=== PATIENT | female | born 1990 ===

== ENCOUNTER 2017-05-13 20:20 | Emergency (ER) | payer MEDICARE, OTHER ==
[2017-05-13 20:25] VITALS: BMI 36.2
[2017-05-13 20:26] VITALS: BP 124/81; RESP 20; TEMP 98; O2SAT 100
[2017-05-13 20:29] VITALS: PULSE 100
--- NOTE | 2017-05-13 20:43 | ED PDOC ---
Arrival/HPI - General Chief Complaint: Cough, Cold, Congestion Time Seen by Provider: 05/13/17 20:30 Historian: Patient - History of Present Illness Narrative History of Present Illness (Text): 05/13/17 20:40 Pt. to ED no significant PMHX with c/o nasal congestion,earache,sinus discomfort past week.No fever or chills. Past Medical History - Provider Review Nursing Documentation Reviewed: Yes - Travel History Have you recently traveled outside [place] w/in the past 3 mons?: No - Tetanus Immunization Tetanus Immunization: Unknown - Past Medical History Past Medical History: No Previous - Cardiac Hx Cardiac Disorders: No - Pulmonary Hx Respiratory Disorders: No - Neurological Hx Neurological Disorder: No - HEENT Hx HEENT Disorder: No - Renal Hx Renal Disorder: No - Endocrine/Metabolic Hx Endocrine Disorders: No - Hematological/Oncological Hx Blood Disorders: No - Integumentary Hx Dermatological Disorder: No - Musculoskeletal/Rheumatological Hx Musculoskeletal Disorders: No - Gastrointestinal Hx Gastrointestinal Disorders: No - Genitourinary/Gynecological Hx Genitourinary Disorders: No - Psychiatric Hx Depression: No Hx Emotional Abuse: No Hx Physical Abuse: No Hx Substance Use: No - Past Surgical History Past Surgical History: No Previous - Anesthesia Hx Anesthesia: No - Suicidal Assessment Feels Threatened In Home Enviroment: No Family/Social History - Physician Review Nursing Documentation Reviewed: Yes Family/Social History: No Known Family HX Smoking Status: Former Smoker Hx Alcohol Use: Yes Hx Substance Use: No Hx Substance Use Treatment: No Allergies/Home Meds Allergies/Adverse Reactions: Allergies No Known Allergies Allergy (Verified 05/13/17 20:25) Review of Systems - Review of Systems Constitutional: Normal Eyes: Normal ENT: Sinus Congestion Respiratory: Normal Cardiovascular: Normal Gastrointestinal: Normal Genitourinary Female: Normal Musculoskeletal: Normal Skin: Normal Neurological: Normal Endocrine: Normal Hemo/Lymphatic: Normal Psychiatric: Normal Physical Exam Vital Signs Temp Pulse Resp BP Pulse Ox 05/13/17 20:26 98.0 F 100 H 20 124/81 100 Temperature: Afebrile Blood Pressure: Normal Pulse: Regular Respiratory Rate: Normal Appearance: Positive for: Well-Appearing, Non-Toxic, Comfortable Pain Distress: None Mental Status: Positive for: Alert and Oriented X 3 - Systems Exam Head: Present: Atraumatic, Normocephalic, Other (frontal sinus congestion) Pupils: Present: PERRL Extroacular Muscles: Present: EOMI Conjunctiva: Present: Normal Ears: Present: Other (left TM erythematous) Mouth: Present: Moist Mucous Membranes Pharnyx: Present: Normal Nose (Internal): Present: Rhinorrhea, Other (congestion) Neck: Present: Normal Range of Motion Respiratory/Chest: Present: Clear to Auscultation, Good Air Exchange. No: Respiratory Distress, Accessory Muscle Use Cardiovascular: Present: Regular Rate and Rhythm, Normal S1, S2. No: Murmurs Upper Extremity: Present: Normal Inspection. No: Cyanosis, Edema Lower Extremity: Present: Normal Inspection. No: Edema Neurological: Present: GCS=15, CN II-XII Intact, Speech Normal, Motor Func Grossly Intact, Normal Sensory Function Skin: Present: Warm, Dry, Normal Color. No: Rashes Psychiatric: Present: Alert, Oriented x 3, Normal Insight, Normal Concentration Disposition/Present on Arrival - Present on Arrival Any Indicators Present on Arrival: No History of DVT/PE: No History of Uncontrolled Diabetes: No Urinary Catheter: No History of Decub. Ulcer: No History Surgical Site Infection Following: None - Disposition Have Diagnosis and Disposition been Completed?: Yes Diagnosis: Otitis media, Sinusitis Disposition: HOME/ ROUTINE Disposition Time: 20:45 Patient Plan: Discharge Condition: GOOD Discharge Instructions (ExitCare): Ear Infections (Otitis Media) (DC), Sinusitis, Adult (DC) Additional Instructions: Take meds as prescribed/follow up with your doctor as needed Prescriptions: Fexofenadine/Pseudoephedrine [Elizabet-D 12 Hour Tablet] 1 each PO BID PRN #24 tab.er.12h PRN Reason: Nasal Congestion Amoxicillin/Clavulanate [Augmentin 875 MG-125 MG] 1 tab PO BID #20 tab Forms: [employer] ([place]), WORK NOTE
== END 2017-05-13 20:54 | disposition home or self-care (01) ==
LOC: ED 20:20
DX: H66.90 Otitis media, unspecified, unspecified ear (principal); J32.9 Chronic sinusitis, unspecified; Z87.891 Personal history of nicotine dependence

== ENCOUNTER 2017-05-28 21:27 | Emergency (ER) | payer MEDICARE, OTHER ==
[2017-05-28 21:28] VITALS: BMI 36.2
[2017-05-28 21:55] VITALS: RESP 18; TEMP 97.8
--- NOTE | 2017-05-28 22:42 | ED PDOC ---
Arrival/HPI <Srini Miranda - Last Filed: 05/29/17 02:12> - General Historian: Patient <Galen Monson A - Last Filed: 05/29/17 23:37> - General Chief Complaint: Abdominal Pain Time Seen by Provider: 05/28/17 21:56 - History of Present Illness Narrative History of Present Illness (Text): 05/28/17 22:38 26yo female with no Past medical history who present with complaint of supra pubic abdominal pain for 3days. +Urinary frequency. She did not take any medication. Denies nausea, vomiting, diarrhea, constipation, fever, dysuria, hematuria, vaginal discharge, back pain, any other complaint. (Galen Monson A) Past Medical History - Provider Review Nursing Documentation Reviewed: Yes - Infectious Disease Hx of Infectious Diseases: None - Tetanus Immunization Tetanus Immunization: Unknown - Past Medical History Past Medical History: No Previous - Cardiac Hx Cardiac Disorders: No - Pulmonary Hx Respiratory Disorders: No - Neurological Hx Neurological Disorder: No - HEENT Hx HEENT Disorder: No - Renal Hx Renal Disorder: No - Endocrine/Metabolic Hx Endocrine Disorders: No - Hematological/Oncological Hx Blood Disorders: No - Integumentary Hx Dermatological Disorder: No - Musculoskeletal/Rheumatological Hx Musculoskeletal Disorders: No - Gastrointestinal Hx Gastrointestinal Disorders: No - Genitourinary/Gynecological Hx Genitourinary Disorders: No - Psychiatric Hx Depression: No Hx Emotional Abuse: No Hx Physical Abuse: No Hx Substance Use: No - Past Surgical History Past Surgical History: No Previous - Anesthesia Hx Anesthesia: No - Suicidal Assessment Feels Threatened In Home Enviroment: No <Galen Monson A - Last Filed: 05/29/17 23:37> Family/Social History - Physician Review Nursing Documentation Reviewed: Yes Family/Social History: Unknown Family HX Smoking Status: Light Smoker < 10 Cigarettes Daily Hx Alcohol Use: Yes Frequency of alcohol use: Socially Hx Substance Use: No Hx Substance Use Treatment: No <Galen Monson A - Last Filed: 05/29/17 23:37> Allergies/Home Meds <Srini Miranda - Last Filed: 05/29/17 02:12> <Galen Monson A - Last Filed: 05/29/17 23:37> Allergies/Adverse Reactions: Allergies No Known Allergies Allergy (Verified 05/13/17 20:25) Review of Systems - Physician Review All systems were reviewed & negative as marked: Yes - Review of Systems Constitutional: Normal Eyes: Normal ENT: Normal Respiratory: Normal Cardiovascular: Normal Gastrointestinal: Abdominal Pain. absent: Constipation, Diarrhea, Nausea, Vomiting, Appetite Changes, Hematochezia, Hematemesis Genitourinary Female: Frequency. absent: Dysuria, Hematuria, Urine Output Changes, Vaginal Bleeding Musculoskeletal: Normal Skin: Normal Neurological: Normal Endocrine: Normal Hemo/Lymphatic: Normal Psychiatric: Normal <Diru,Happiness A - Last Filed: 05/29/17 23:37> Physical Exam Vital Signs Reviewed: Yes Temperature: Afebrile Blood Pressure: Normal Pulse: Regular Respiratory Rate: Normal Appearance: Positive for: Well-Appearing, Non-Toxic, Comfortable Pain Distress: None Mental Status: Positive for: Alert and Oriented X 3 - Systems Exam Head: Present: Atraumatic, Normocephalic Pupils: Present: PERRL Extroacular Muscles: Present: EOMI Conjunctiva: Present: Normal Mouth: Present: Moist Mucous Membranes Neck: Present: Normal Range of Motion Respiratory/Chest: Present: Clear to Auscultation, Good Air Exchange. No: Respiratory Distress, Accessory Muscle Use Cardiovascular: Present: Regular Rate and Rhythm, Normal S1, S2. No: Murmurs Abdomen: Present: Tenderness (Suprapubic tenderness), Other (soft). No: Distention, Peritoneal Signs, Rebound, Guarding, McBurney's Point Tender, Rovsing's Sign Present Back: Present: Normal Inspection Upper Extremity: Present: Normal Inspection. No: Cyanosis, Edema Lower Extremity: Present: Normal Inspection. No: Edema Neurological: Present: GCS=15, CN II-XII Intact, Speech Normal Skin: Present: Warm, Dry, Normal Color. No: Rashes Psychiatric: Present: Alert, Oriented x 3, Normal Insight, Normal Concentration <Diru,Happiness A - Last Filed: 05/29/17 23:37> Vital Signs Temp Pulse Resp BP Pulse Ox 05/29/17 02:30 74 18 110/72 100 05/28/17 21:50 97.8 F 75 18 101/69 97 Medical Decision Making - RAD Interpretation Esthetician: Radiologist <Srini Miranda - Last Filed: 05/29/17 02:12> <Diru,Happiness A - Last Filed: 05/29/17 23:37> ED Course and Treatment: 05/29/17 02:12 CT Abdomen and Pelvis shows: Lung bases: No visualized consolidation. ABDOMEN: Liver: Unremarkable. No mass. Gallbladder and bile ducts: No calcified stones. Pancreas: Normal contour. No ductal dilation. Spleen: The spleen measures 12.97 m in length, borderline for splenomegaly. Adrenals: No mass. Kidneys and ureters: No obstructing stones. No hydronephrosis. Stomach and bowel: No obstruction. No mucosal thickening. Appendix: No acute inflammatory changes are identified involving the appendix. PELVIS: Bladder: No stones. Reproductive: Unremarkable as visualized. ABDOMEN and PELVIS: Intraperitoneal space: No free air. Trace free fluid is seen within the cul-de- sac. Bones/joints: No acute fracture. Soft tissues: There is minimal herniation of fat within the umbilicus. There is diastases of the rectus abdominis musculature. Vasculature: No abdominal aortic aneurysm. Lymph nodes: Small retroperitoneal and intrapelvic lymph nodes are identified, without significant lymphadenopathy. Nonspecific small inguinal lymph nodes are visualized. Small mesenteric lymph nodes are visualized, no significant lymphadenopathy. IMPRESSION: 1. No acute inflammatory changes are identified involving the appendix. 2. Borderline splenomegaly. 3. Trace free fluid is seen within the cul-de-sac. This can be further evaluated with ultrasound. 4. Incidental/non-acute findings are described above. (Srini Miranda) 05/29/17 01:52 PT in Emergency department for abdominal pain with urinary frequency. She have no UTI. she was comfortable in Emergency department. Abdominal/Pelvic CT is pending. case endorsed to Dr. Miranda to f/u CT and dispo accordingly. (Galen Monson) - Lab Interpretations Lab Results: Lab Results 05/28/17 22:51: Urine Color Yellow, Urine Appearance Clear, Urine pH 7.0, Ur Specific Butler 1.020, Urine Protein Negative, Urine Glucose (UA) Negative, Urine Ketones Negative, Urine Blood Negative, Urine Nitrate Negative, Urine Bilirubin Negative, Urine Urobilinogen 1.0 H, Ur Leukocyte Esterase Negative - RAD Interpretation Radiology Orders: 05/28/17 23:06 ABD & PELVIS W/O PO OR IV CONT [CT] Stat - Medication Orders Current Medication Orders: Discontinued Medications Ketorolac Tromethamine (Toradol) 60 mg IM STAT STA Stop: 05/29/17 01:53 Last Admin: 05/29/17 02:19 Dose: 60 mg MAR Pain Assessment Document 05/29/17 02:19 AD (Rec: 05/29/17 02:19 AD [id number]) Pain Reassessment Is this a pain reassessment? No Pain Scale Used Pain Scale Used Numeric Description Intensity of Pain at present 7 IM Administration Charges Document 05/29/17 02:19 AD (Rec: 05/29/17 02:19 AD [id number]) Injection Site MAR Injection Site Right Gluteus Patrick Charges for Administration # of IM Administrations 1 Disposition/Present on Arrival <Srini Miranda - Last Filed: 05/29/17 02:12> - Present on Arrival Any Indicators Present on Arrival: No History of DVT/PE: No History of Uncontrolled Diabetes: No Urinary Catheter: No History of Decub. Ulcer: No History Surgical Site Infection Following: None - Disposition Have Diagnosis and Disposition been Completed?: Yes Disposition Time: 02:55 Patient Plan: Discharge <Galen Monson - Last Filed: 05/29/17 23:37> - Disposition Diagnosis: Abdominal pain Disposition: HOME/ ROUTINE Condition: STABLE Discharge Instructions (ExitCare): Acute Abdomen (Belly Pain) Referrals: Attila Breen [Primary Care Provider] - Follow up with primary Justyna Hernandez MD [Staff Provider] - Follow up with primary Julio Cesar Garcia MD [Staff Provider] - Follow up with primary Forms: [employer] (French), WORK NOTE
[2017-05-28 22:57] LABS: URINE BILIRUBIN NEGATIVE (NEGATIVE); URINE BLOOD NEGATIVE (NEGATIVE); URINE GLUCOSE (UA) NEGATIVE (NEGATIVE); URINE LEUKOCYTE ESTERASE NEGATIVE Leu/uL (NEGATIVE); URINE PROTEIN NEGATIVE mg/dL (<30 mg/dL)
[2017-05-28 23:01] LABS: URINE APPEARANCE CLEAR (CLEAR); URINE COLOR YELLOW (YELLOW)
--- NOTE | 2017-05-29 02:12 | CT ---
EXAM: CT Abdomen and Pelvis Without Intravenous Contrast EXAM DATE/TIME: 05/28/2017 11:06 PM CLINICAL HISTORY: The patient age is 26 years old and is female; Pain; Abdominal pain; Localized; Lower Facility exam id and description: Ct abdpelscon abd pelvis w/o po or iv cont TECHNIQUE: Axial computed tomography images of the abdomen and pelvis without intravenous contrast. All CT scans at this facility use one or more dose reduction techniques, viz.: automated exposure control; ma/kV adjustment per patient size (including targeted exams where dose is matched to indication; i.e. head); or iterative reconstruction technique. Coronal and sagittal reformatted images were created and reviewed. COMPARISON: No relevant prior studies available. FINDINGS: Lung bases: No visualized consolidation. ABDOMEN: Liver: Unremarkable. No mass. Gallbladder and bile ducts: No calcified stones. Pancreas: Normal contour. No ductal dilation. Spleen: The spleen measures 12.97 m in length, borderline for splenomegaly. Adrenals: No mass. Kidneys and ureters: No obstructing stones. No hydronephrosis. Stomach and bowel: No obstruction. No mucosal thickening. Appendix: No acute inflammatory changes are identified involving the appendix. PELVIS: Bladder: No stones. Reproductive: Unremarkable as visualized. ABDOMEN and PELVIS: Intraperitoneal space: No free air. Trace free fluid is seen within the cul-de-sac. Bones/joints: No acute fracture. Soft tissues: There is minimal herniation of fat within the umbilicus. There is diastases of the rectus abdominis musculature. Vasculature: No abdominal aortic aneurysm. Lymph nodes: Small retroperitoneal and intrapelvic lymph nodes are identified, without significant lymphadenopathy. Nonspecific small inguinal lymph nodes are visualized. Small mesenteric lymph nodes are visualized, no significant lymphadenopathy. IMPRESSION: 1. No acute inflammatory changes are identified involving the appendix. 2. Borderline splenomegaly. 3. Trace free fluid is seen within the cul-de-sac. This can be further evaluated with ultrasound. 4. Incidental/non-acute findings are described above.
[2017-05-29 02:43] VITALS: BP 110/72; PULSE 74; O2SAT 100
== END 2017-05-29 02:41 | disposition home or self-care (01) ==
LOC: ED 21:27
DX: R10.9 Unspecified abdominal pain (principal)
CPT/HCPCS: 74176; 81003; 96372; 99283; J1885

== ENCOUNTER 2017-07-19 10:04 | Emergency (ER) | payer MEDICARE, OTHER ==
[2017-07-19 10:06] VITALS: BMI 36.2
[2017-07-19 10:12] VITALS: O2SAT 98
--- NOTE | 2017-07-19 10:56 | ED PDOC ---
Arrival/HPI - General Chief Complaint: Abnormal Skin Integrity Time Seen by Provider: 07/19/17 10:11 Historian: Patient - History of Present Illness Narrative History of Present Illness (Text): 07/19/17 10:52 This 27 yo female presents to this ED c/o upper lips are swollen since she woke up this morning. Patient also noted left face feels swollen. While in this ED triage, patient felt itching b/l shoulders, then tingling left hand. Patient denies trauma, diplopia, dysarthria, dizziness, SOB, CP, other somatic complains. Time/Duration: Other (see hpi) Context: Home Past Medical History - Provider Review Nursing Documentation Reviewed: Yes - Infectious Disease Hx of Infectious Diseases: None - Tetanus Immunization Tetanus Immunization: Unknown - Past Medical History Past Medical History: No Previous - Cardiac Hx Cardiac Disorders: No - Pulmonary Hx Respiratory Disorders: No - Neurological Hx Neurological Disorder: No - HEENT Hx HEENT Disorder: No - Renal Hx Renal Disorder: No - Endocrine/Metabolic Hx Endocrine Disorders: No - Hematological/Oncological Hx Blood Disorders: No - Integumentary Hx Dermatological Disorder: No - Musculoskeletal/Rheumatological Hx Musculoskeletal Disorders: No - Gastrointestinal Hx Gastrointestinal Disorders: No - Genitourinary/Gynecological Hx Genitourinary Disorders: No - Psychiatric Hx Depression: No Hx Emotional Abuse: No Hx Physical Abuse: No Hx Substance Use: No - Past Surgical History Past Surgical History: No Previous - Anesthesia Hx Anesthesia: No - Suicidal Assessment Feels Threatened In Home Enviroment: No Family/Social History - Physician Review Nursing Documentation Reviewed: Yes Family/Social History: Other (noncontributory) Smoking Status: Current Some Days Smoker Hx Alcohol Use: Yes Frequency of alcohol use: Socially Hx Substance Use: No Hx Substance Use Treatment: No Allergies/Home Meds Allergies/Adverse Reactions: Allergies No Known Allergies Allergy (Verified 05/13/17 20:25) Review of Systems - Review of Systems Constitutional: Normal. absent: Fatigue, Weight Change, Fevers Eyes: Normal ENT: Other (swollen lips) Respiratory: Normal Cardiovascular: Normal Gastrointestinal: Normal Genitourinary Female: Normal. absent: Dysuria, Frequency, Hematuria Musculoskeletal: Normal Skin: Normal Neurological: Normal Endocrine: Normal Hemo/Lymphatic: Normal Psychiatric: Normal Physical Exam Vital Signs Temp Pulse Resp BP Pulse Ox 07/19/17 12:11 75 18 118/68 98 07/19/17 11:09 79 18 115/71 98 07/19/17 10:06 98.7 F 80 16 117/76 98 Temperature: Afebrile Blood Pressure: Normal Pulse: Regular Respiratory Rate: Normal Appearance: Positive for: Well-Appearing, Non-Toxic, Comfortable Pain Distress: None Mental Status: Positive for: Alert and Oriented X 3 - Systems Exam Head: Present: Atraumatic, Normocephalic Pupils: Present: PERRL Extroacular Muscles: Present: EOMI Conjunctiva: Present: Normal Mouth: Present: Moist Mucous Membranes, Normal Tounge. No: Drooling, Trismus, Normal Lips ((+) mild upper lip swelling. No erythema. No skin rash.) Pharnyx: Present: Normal. No: ERYTHEMA, EXUDATE, TONSILS ENLARGED Nose (External): Present: Atraumatic Nose (Internal): Present: Normal Inspection Neck: Present: Normal Range of Motion, Trachea Midline. No: Meningeal Signs, MIDLINE TENDERNESS, Paraspinal Tenderness, Lymphadenopathy Respiratory/Chest: Present: Clear to Auscultation, Good Air Exchange. No: Respiratory Distress, Accessory Muscle Use, Wheezes, Retracting, Rhonchi Cardiovascular: Present: Regular Rate and Rhythm, Normal S1, S2. No: Murmurs Abdomen: No: Tenderness, Distention, Peritoneal Signs, Rebound, Guarding Back: Present: Normal Inspection. No: CVA Tenderness Upper Extremity: Present: Normal Inspection, Normal ROM. No: Cyanosis, Edema Lower Extremity: Present: Normal Inspection, Normal ROM. No: Edema Neurological: Present: GCS=15, CN II-XII Intact, Speech Normal, Motor Func Grossly Intact, Normal Sensory Function, Normal Cerebellar Funct, Gait Normal Skin: Present: Warm, Dry, Normal Color. No: Rashes Psychiatric: Present: Alert, Oriented x 3, Normal Insight, Normal Concentration Medical Decision Making ED Course and Treatment: 07/19/17 11:14 I reviewed with patient the risk of using Prednisone for allergies. I told patient the risk are not only but including AVN, DM, glaucoma, osteoporosis, osteopenia. Patient understood risk, and agreed to take Prednisone. 07/19/17 14:30 On revaluation, patient feels better. Patient swelling lips have improved. Patient denies wheezing, dysphagia, strider. Patient has a normal speech. Lungs CTA b/l, no wheezing. Patient tolerates PO fluids, and food. Patient wishes to be discharge home. Patient was recommended to stop eating [place] food, and to have an allergy test. To use Epi Pen for anaphylactic show allergy. Re-evaluation Time: 14:18 Reassessment Condition: Re-examined, Improved - Medication Orders Current Medication Orders: Discontinued Medications Diphenhydramine HCl (Benadryl) 50 mg PO STAT STA Stop: 07/19/17 10:53 Last Admin: 07/19/17 11:13 Dose: 50 mg Famotidine (Pepcid) 40 mg PO STAT STA Stop: 07/19/17 10:57 Last Admin: 07/19/17 11:14 Dose: 40 mg Prednisone (Prednisone Tab) 60 mg PO STAT ONE Stop: 07/19/17 10:53 Last Admin: 07/19/17 11:13 Dose: 60 mg Disposition/Present on Arrival - Present on Arrival Any Indicators Present on Arrival: No History of DVT/PE: No History of Uncontrolled Diabetes: No Urinary Catheter: No History of Decub. Ulcer: No History Surgical Site Infection Following: None - Disposition Have Diagnosis and Disposition been Completed?: Yes Diagnosis: Allergic reaction Disposition: HOME/ ROUTINE Disposition Time: 14:20 Patient Plan: Discharge Condition: GOOD Discharge Instructions (ExitCare): Allergy Skin Testing Additional Instructions: Call private doctor for follow up visit in 1-2 days. Take medication as instructed. Return to emergency if symptoms worsen. Do not eat [place] food till you get an allergy test. Do not drive or operate machinery if you take Vistaril for at least 12 hours. Prescriptions: Epinephrine [Epipen] 0.3 mg IJ DAILY PRN #1 auto.injct PRN Reason: Anaphylaxis Famotidine [Pepcid] 40 mg PO DAILY #10 tablet Hydroxyzine Pamoate [Vistaril] 25 mg PO Q8H PRN #20 capsule PRN Reason: Itching / Pruritus predniSONE [predniSONE Tab] 40 mg PO DAILY #6 tab Referrals: Yin Rea MD [Staff Provider] - Follow up with primary Forms: [employer] (Georgian)
[2017-07-19 11:09] VITALS: RESP 18
[2017-07-19 14:11] VITALS: BP 121/69; PULSE 69
[2017-07-19 14:24] VITALS: TEMP 98.2
== END 2017-07-19 14:54 | disposition home or self-care (01) ==
LOC: ED 10:04
DX: T78.40XA Allergy, unspecified, initial encounter (principal); X58.XXXA Exposure to other specified factors, initial encounter; F17.200 Nicotine dependence, unspecified, uncomplicated

== ENCOUNTER 2017-10-26 10:17 | Emergency (ER) | payer MEDICARE, OTHER ==
[2017-10-26 10:17] VITALS: BMI 36.2
--- NOTE | 2017-10-26 10:46 | ED PDOC ---
Arrival/HPI - General Chief Complaint: Dental Pain Time Seen by Provider: 10/26/17 10:32 Historian: Patient - History of Present Illness Narrative History of Present Illness (Text): 10/26/17 10:43 27yo female with no pmhx who present with complaint of left sided toothache . Notes that pain started intermittently 2weeks ago and became worse the past 2days. States she took Motrin earlier this morning without relieve. Denies fever , chills, any other complaint. Past Medical History - Provider Review Nursing Documentation Reviewed: Yes - Infectious Disease Hx of Infectious Diseases: None - Tetanus Immunization Tetanus Immunization: Unknown - Past Medical History Past Medical History: No Previous - Cardiac Hx Cardiac Disorders: No - Pulmonary Hx Respiratory Disorders: No - Neurological Hx Neurological Disorder: No - HEENT Hx HEENT Disorder: No - Renal Hx Renal Disorder: No - Endocrine/Metabolic Hx Endocrine Disorders: No - Hematological/Oncological Hx Blood Disorders: No - Integumentary Hx Dermatological Disorder: No - Musculoskeletal/Rheumatological Hx Musculoskeletal Disorders: No - Gastrointestinal Hx Gastrointestinal Disorders: No - Genitourinary/Gynecological Hx Genitourinary Disorders: No - Psychiatric Hx Depression: No Hx Emotional Abuse: No Hx Physical Abuse: No Hx Substance Use: No - Past Surgical History Past Surgical History: No Previous - Anesthesia Hx Anesthesia: No - Suicidal Assessment Feels Threatened In Home Enviroment: No Family/Social History - Physician Review Nursing Documentation Reviewed: Yes Family/Social History: Unknown Family HX Smoking Status: Light Smoker < 10 Cigarettes Daily Hx Alcohol Use: Yes Frequency of alcohol use: Socially Hx Substance Use: No Hx Substance Use Treatment: No Allergies/Home Meds Allergies/Adverse Reactions: Allergies No Known Allergies Allergy (Verified 10/26/17 10:29) Review of Systems - Physician Review All systems were reviewed & negative as marked: Yes - Review of Systems Constitutional: Normal Eyes: Normal ENT: Other (Toothache) Respiratory: Normal Cardiovascular: Normal Gastrointestinal: Normal Genitourinary Female: Normal Musculoskeletal: Normal Skin: Normal Neurological: Normal Endocrine: Normal Hemo/Lymphatic: Normal Psychiatric: Normal Physical Exam Vital Signs Reviewed: Yes Vital Signs Temp Pulse Resp BP Pulse Ox 10/26/17 10:26 98.1 F 76 18 114/78 99 Temperature: Afebrile Blood Pressure: Normal Pulse: Regular Respiratory Rate: Normal Appearance: Positive for: Well-Appearing, Non-Toxic, Comfortable Pain Distress: None Mental Status: Positive for: Alert and Oriented X 3 - Systems Exam Head: Present: Atraumatic, Normocephalic Pupils: Present: PERRL Extroacular Muscles: Present: EOMI Conjunctiva: Present: Normal Mouth: Present: Moist Mucous Membranes. No: Normal Teeth (Very mild swelling of the gingiva surrounding the left lower premolar and molar. No overlaying jaw/ chin swelling. No erythema.) Neck: Present: Normal Range of Motion Respiratory/Chest: Present: Clear to Auscultation, Good Air Exchange. No: Respiratory Distress, Accessory Muscle Use Cardiovascular: Present: Regular Rate and Rhythm, Normal S1, S2. No: Murmurs Abdomen: No: Tenderness, Distention, Peritoneal Signs Back: Present: Normal Inspection Upper Extremity: Present: Normal Inspection. No: Cyanosis, Edema Lower Extremity: Present: Normal Inspection. No: Edema Neurological: Present: GCS=15, CN II-XII Intact, Speech Normal Skin: Present: Warm, Dry, Normal Color. No: Rashes Psychiatric: Present: Alert, Oriented x 3, Normal Insight, Normal Concentration Disposition/Present on Arrival - Present on Arrival Any Indicators Present on Arrival: No History of DVT/PE: No History of Uncontrolled Diabetes: No Urinary Catheter: No History of Decub. Ulcer: No History Surgical Site Infection Following: None - Disposition Have Diagnosis and Disposition been Completed?: Yes Diagnosis: Dental caries Disposition: HOME/ ROUTINE Disposition Time: 10:50 Patient Plan: Discharge Condition: STABLE Discharge Instructions (ExitCare): Dental Pain Additional Instructions: Follow up with your Dentist Return to ED for any new or worsening symptoms Prescriptions: Amoxicillin [Amoxil 500 mg Cap] 500 mg PO TID #21 cap Ibuprofen [Motrin Tab] 600 mg PO Q6 #20 tab Referrals: Avril Shen MD [Medical Doctor] - Follow up with primary
[2017-10-26 11:10] VITALS: BP 118/53; RESP 19; TEMP 98; O2SAT 100
[2017-10-26 11:18] VITALS: PULSE 85
== END 2017-10-26 11:17 | disposition home or self-care (01) ==
LOC: ED 10:17
DX: K02.9 Dental caries, unspecified (principal); F17.210 Nicotine dependence, cigarettes, uncomplicated

== ENCOUNTER 2017-12-11 10:24 | Emergency (ER) | payer MEDICARE, OTHER ==
[2017-12-11 11:13] VITALS: BMI 38.7
[2017-12-11 11:29] VITALS: RESP 18
[2017-12-11] MEDS ORDERED: cefTRIAXone (Rocephin) 250 mg Inj IM STA (12:34)
[2017-12-11 12:42] LABS: URINE BILIRUBIN NEGATIVE (NEGATIVE); URINE BLOOD NEGATIVE (NEGATIVE); URINE GLUCOSE (UA) NEGATIVE (NEGATIVE); URINE LEUKOCYTE ESTERASE SMALL Leu/uL (NEGATIVE); URINE PROTEIN NEGATIVE mg/dL (<30 mg/dL); URINE UROBILINOGEN 0.2 E.U./dL (<1 E.U./dL)
[2017-12-11 12:45] LABS: URINE APPEARANCE CLEAR (CLEAR); URINE COLOR YELLOW (YELLOW)
[2017-12-11 12:53] LABS: URINE BACTERIA MANY (NEG); URINE RBC 0 - 2 /hpf (0-2)
--- NOTE | 2017-12-11 13:05 | ED PDOC ---
Arrival/HPI - General Chief Complaint: Female Genitourinary Time Seen by Provider: 12/11/17 11:11 Historian: Patient - History of Present Illness Narrative History of Present Illness (Text): 12/11/17 13:02 27yo female with no pmhx who present with complaint of dysuria x one week and whitish vaginal discharge that started few days ago. the sister by the bedside states sister was doing a home treatment with Cranberry supplement for UTI and decided to come to the ED because of the discharge. Notes she is sexually active with multiple partners, with some protection. She denies abdominal pain, fever, chills, back pain, nausea, hematuria, chills, vomiting, any other complaint. Past Medical History - Provider Review Nursing Documentation Reviewed: Yes - Infectious Disease Hx of Infectious Diseases: None - Tetanus Immunization Tetanus Immunization: Unknown - Past Medical History Past Medical History: No Previous - Cardiac Hx Cardiac Disorders: No - Pulmonary Hx Respiratory Disorders: No - Neurological Hx Neurological Disorder: No - HEENT Hx HEENT Disorder: No - Renal Hx Renal Disorder: No - Endocrine/Metabolic Hx Endocrine Disorders: No - Hematological/Oncological Hx Blood Disorders: No - Integumentary Hx Dermatological Disorder: No - Musculoskeletal/Rheumatological Hx Musculoskeletal Disorders: No - Gastrointestinal Hx Gastrointestinal Disorders: No - Genitourinary/Gynecological Hx Genitourinary Disorders: No - Psychiatric Hx Depression: No Hx Emotional Abuse: No Hx Physical Abuse: No Hx Substance Use: No - Past Surgical History Past Surgical History: No Previous - Anesthesia Hx Anesthesia: No - Suicidal Assessment Feels Threatened In Home Enviroment: No Family/Social History - Physician Review Nursing Documentation Reviewed: Yes Family/Social History: Unknown Family HX Smoking Status: Light Smoker < 10 Cigarettes Daily Hx Alcohol Use: Yes Hx Substance Use: No Hx Substance Use Treatment: No Allergies/Home Meds Allergies/Adverse Reactions: Allergies No Known Allergies Allergy (Verified 12/11/17 11:14) Review of Systems - Physician Review All systems were reviewed & negative as marked: Yes - Review of Systems Constitutional: Normal Eyes: Normal ENT: Normal Respiratory: Normal Cardiovascular: Normal Gastrointestinal: Normal Genitourinary Female: Dysuria, Vaginal Discharge. absent: Frequency, Hematuria, Vaginal Bleeding Musculoskeletal: Normal Skin: Normal Neurological: Normal Endocrine: Normal Hemo/Lymphatic: Normal Psychiatric: Normal Physical Exam Vital Signs Reviewed: Yes Vital Signs Temp Pulse Resp BP Pulse Ox 12/11/17 10:25 99.2 F 88 18 117/65 98 Temperature: Afebrile Blood Pressure: Normal Pulse: Regular Respiratory Rate: Normal Appearance: Positive for: Well-Appearing, Non-Toxic, Comfortable Pain Distress: None Mental Status: Positive for: Alert and Oriented X 3 - Systems Exam Head: Present: Atraumatic, Normocephalic Pupils: Present: PERRL Extroacular Muscles: Present: EOMI Conjunctiva: Present: Normal Mouth: Present: Moist Mucous Membranes Neck: Present: Normal Range of Motion Respiratory/Chest: Present: Clear to Auscultation, Good Air Exchange. No: Respiratory Distress, Accessory Muscle Use Cardiovascular: Present: Regular Rate and Rhythm, Normal S1, S2. No: Murmurs Abdomen: No: Tenderness, Distention, Peritoneal Signs Back: Present: Normal Inspection Upper Extremity: Present: Normal Inspection. No: Cyanosis, Edema Lower Extremity: Present: Normal Inspection. No: Edema Neurological: Present: GCS=15, CN II-XII Intact, Speech Normal Skin: Present: Warm, Dry, Normal Color. No: Rashes Psychiatric: Present: Alert, Oriented x 3, Normal Insight, Normal Concentration Medical Decision Making - Lab Interpretations Lab Results: Lab Results 12/11/17 12:20: Urine Color Yellow, Urine Appearance Clear, Urine pH 6.0, Ur Specific [place] >= 1.030, Urine Protein Negative, Urine Glucose (UA) Negative, Urine Ketones Negative, Urine Blood Negative, Urine Nitrate Negative, Urine Bilirubin Negative, Urine Urobilinogen 0.2, Ur Leukocyte Esterase Small H, Urine RBC 0 - 2, Urine WBC 10 - 15, Ur Epithelial Cells 10 - 12, Urine Bacteria Many, Urine Other Uyeast - Medication Orders Current Medication Orders: Discontinued Medications Azithromycin (Zithromax) 1,000 mg PO STAT STA; Protocol Stop: 12/11/17 12:36 Last Admin: 12/11/17 12:56 Dose: 1,000 mg Ceftriaxone Sodium (Rocephin) 250 mg IM STAT STA; Protocol Stop: 12/11/17 12:35 Last Admin: 12/11/17 12:56 Dose: 250 mg IM Administration Charges Document 12/11/17 12:56 [place] (Rec: 12/11/17 12:56 [place] [id number] Injection Site MAR Injection Site Left Arm Charges for Administration # of IM Administrations 1 Fluconazole (Diflucan) 150 mg PO ONCE STA; Protocol Stop: 12/11/17 12:56 Disposition/Present on Arrival - Present on Arrival Any Indicators Present on Arrival: No History of DVT/PE: No History of Uncontrolled Diabetes: No Urinary Catheter: No History of Decub. Ulcer: No History Surgical Site Infection Following: None - Disposition Have Diagnosis and Disposition been Completed?: Yes Diagnosis: Vaginal discharge, UTI (urinary tract infection), Candidiasis Disposition: HOME/ ROUTINE Disposition Time: 13:10 Patient Plan: Discharge Condition: STABLE Discharge Instructions (ExitCare): Urinary Tract Infections in Adults, Yeast Infection (DC) Prescriptions: Cephalexin [cephalexin] 500 mg PO TID #21 cap Phenazopyridine [Pyridium] 200 mg PO TID #6 tab Referrals: Avril Shen MD [Medical Doctor] - Follow up with primary
[2017-12-11 13:56] VITALS: BP 120/71; PULSE 76; TEMP 99; O2SAT 97
== END 2017-12-11 13:50 | disposition home or self-care (01) ==
LOC: ED 10:24
DX: N39.0 Urinary tract infection, site not specified (principal); N89.8 Other specified noninflammatory disorders of vagina; B37.3 Candidiasis of vulva and vagina; F17.210 Nicotine dependence, cigarettes, uncomplicated
CPT/HCPCS: 81001; 87086; 87491; 87591; 96372; 99284; J0696